=== PATIENT | female | born 1985 | race Two or more races ===

== ENCOUNTER 2023-10-30 21:02 | Inpatient (IN) | payer OTHER, SELFPAY ==
[2023-10-30 16:03] VITALS: BMI 25.7
[2023-10-30 16:04] VITALS: BP 115/81
[2023-10-30 16:20] LABS: % Basophils 0.1 % (0-2); % Eosinophils 2.1 % (0-6); % Immature Granulocytes 0.4 % (0-0.5); % Lymphocytes 11.4 % (20.5-51.1); Absolute Eosinophils 0.2 10^3/uL (0-0.7); Absolute Lymphocytes 0.9 10^3/uL (1.2-3.4); Absolute Monocytes 0.3 10^3/uL (0.1-0.6); Absolute Neutrophils 6.3 10^3/uL (1.4-6.5); Hematocrit 24.3 % (37.0-47.0); Mean Corp Hgb Conc. 27.2 g/dL (33.0-37.0); Mean Corpuscular Hgb 15.2 pg (27.0-31.0); Mean Corpuscular Volume 55.9 fL (81.0-99.0); Nucleated Red Blood Cells % 0 %; Platelet Count 296 10^3/uL (130-400); Red Blood Cell Count 4.35 10^6/uL (4.20-5.40); White Blood Cell Count 7.7 10^3/uL (4.8-10.8)
[2023-10-30 16:29] LABS: HCG, Serum Qualitative Screen Negative
[2023-10-30 16:33] LABS: ALT (SGPT) 13 U/L (0-35); AST (SGOT) 25 U/L (14-36); Albumin 4.7 g/dl (3.5-5.0); Alkaline Phosphatase 79 U/L (38-126); Blood Urea Nitrogen 14 mg/dl (7-17); Carbon Dioxide 22 mmol/L (22-30); Chloride 107 mmol/L (98-107); Glucose 97 mg/dl (70-99); Hemoglobin 6.6 g/dL (12.0-16.0); Potassium 4.5 mmol/L (3.5-5.1); Sodium 141 mmol/L (135-145); Total Protein 8.2 g/dl (6.3-8.2); eGFR > 60.00
[2023-10-30 16:48] LABS: Lipase 39 U/L (23-300)
[2023-10-30 16:56] LABS: Hypochromasia 1+; Macrocytosis 1+; Normal RBC Morphology No
[2023-10-30 16:57] LABS: Microcytosis 2+; Ovalocytes 1+
[2023-10-30 17:01] LABS: Stomatocytes Slight
--- NOTE | 2023-10-30 17:41 | ED.GENMED ---
History of Present Illness
General
Chief Complaint: Abdominal Pain
Source: patient
Time Seen by Provider: 10/30/23 17:23
History of Present Illness
History of Present Illness:
38-year-old female presents to the emergency room complaining of lower abdominal pain. Patient has been having the pain for the past several days. She has associated nausea and vomiting though the last time she vomited was about 2 days ago. She
noted some blood streaks in the vomit earlier in the week but again no vomiting for the past couple days. She did have loose stool this morning but no diarrhea since then. Pain is worse with movement. Patient denies any vaginal bleeding
currently. She does admit to having heavy menstrual periods though. She has no knowledge of ever being anemic in the past. She is never been told to take iron. Her abdominal pain is worse with movement and walking.
Phy Exam
Physical Exam
Physical Exam:
General: Awake, Alert, Oriented X3. No acute distress but does appear uncomfortable
Vitals: unremarkable
Head: Atraumatic
Eyes: Pupils equal, EOMI
Throat: Airway intact, no exudates
Neck: Trachea midline
Lungs: Clear and equal b/l
Heart: Regular rate, no murmurs
Abd: Soft, left lower quadrant tenderness palpation, No pulsatile mass
Neuro: Nonfocal
Skin: Warm, dry, no rash
Extremities: pulses equal b/l, no edema
Course
Orders/Labs/Results
Orders:
Orders
10/30/23 Breakfast
Regular
At Your Request: Full Participation
10/30/23 16:08
Test Result ONCE
10/30/23 16:12
Complete Blood Count/With Diff Urgent
Comprehensive Metabolic Panel Urgent
Ferritin Urgent
Comment: ADD ON
Folate Urgent
Comment: ADD ON
HCG, Serum Qualitative Screen Urgent
Iron Urgent
Comment: ADD ON
Lipase Urgent
Total Iron Binding Urgent
Comment: ADD ON
Vitamin B12 Urgent
Comment: ADD ON
10/30/23 17:38
0.9% Sodium Chloride 1000 ml [Nss] 1,000 ml IV BOLUS
HYDROmorphone [Dilaudid] 0.5 mg IV NOW STA
10/30/23 17:40
CT Abd/pelvis W Iv Cont Urgent
Comment:
Reason For Exam: llq abd pain
10/30/23 17:49
Type+Screen Urgent
10/30/23 20:05
Blood Bank Products [* Blood Bank Products] Urgent
Blood Bank Products: *Packed RBC Leuko(PRBC's)
Quantity: 1
Transfuse Today: Yes
Reason: Anemia
10/30/23 20:30
Add On- LAB Urgent
Tests Added?: iron, ferritin, tibc, folate, vit b12
10/30/23 20:47
Admit/Transfer Patient As Directed
Co-Sign Provider:
Level of Care: Inpatient admission
Assign to:: Medical/Surgical
Physician / Group: Dea
Diagnosis: Anemia
Reason for Hospitalization: blood transfusion
Expected length of stay greater than two midnights?: Yes
ELOS- Estimated Length of Stay in days: 3
I certify the patient meets the requirements for IP care: Yes
10/30/23 20:48
Code Status As Directed
Resuscitation Status: Full Code
10/30/23 22:07
Acetaminophen [Tylenol] 650 mg PO Q4HPRN PRN
10/30/23 22:07
Activity As Directed
Activity Level: Out of Bed-Early Mobility
With Assistance
I&O [Intake/ Output] As Directed
Frequency: q12h
Pneumatic Compression Sleeves As Directed
Type: Knee high
Vital Signs As Directed
Frequency: Per unit guidelines
Weight As Directed
Frequency: Daily
DX Deep Vein Thrombosis Video Routine
10/31/23 05:19
Basic Metabolic Panel IN AM
Complete Blood Count/No Diff IN AM
Abnormal Lab Results
10/30/23 10/30/23
16:12 17:49
Hgb 6.6 L* g/dL
(12.0-16.0)
Hct 24.3 L %
(37.0-47.0)
MCV 55.9 L fL
(81.0-99.0)
MCH 15.2 L pg
(27.0-31.0)
MCHC 27.2 L g/dL
(33.0-37.0)
RDW 20.0 H %
(11.5-14.5)
Absolute Lymphs (auto) 0.9 L 10^3/uL
(1.2-3.4)
Neutrophils % 82.0 H %
(42.2-75.2)
Lymphocytes % 11.4 L %
(20.5-51.1)
Creatinine 0.5 L mg/dL
(0.6-1.0)
Iron 29 L ug/dl
(37-170)
% Saturation 6 L %
(20-50)
Ferritin 3.3 L ng/ml
(6.24-137)
Antibody Screen Positive A
(Negative)
Crossmatch IS Only See Detail
MTS Gel Crossmatch See Detail
10/30/23 16:12
10/30/23 16:12
Vital Signs
Initial and Last Documented VS:
Initial Vital Signs
Temp Pulse Resp BP Pulse Ox
99.0 F 84 16 115/81 100
10/30/23 16:04 10/30/23 16:04 10/30/23 16:04 10/30/23 16:04 10/30/23 16:04
Last Documented Vital Signs
Temp Pulse Resp BP Pulse Ox
98.8 F 78 17 149/81 99
10/31/23 19:43 10/31/23 19:43 10/31/23 19:43 10/31/23 19:43 10/31/23 19:43
MDM/Problems Addressed
Differential Diagnosis Includes:
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
MDM/Problems Addressed:
Pt has some tenderness but not surgical abd. Labs show significant anemia. Pt is uninsured and we will be unable to arrange outpatient iron. Pt admitted for tx and hematology eval/iron infussion. Discussed with Dr. Talavera. Blood bank notes
antibodies on screen and identifying a unit of blood will take time.
*Radiology
Radiology exam reviewed: radiology read reviewed
*Pulse Oximetry
Patient hypoxic: no
*Critical Care Note
Total Time (30-74mins, 75-104mins- exclusive of procedures): Not Applicable
ED Attending Note
-
Portions of this chart may have been created with voice recognition software.� Occasional wrong word or��sound alike� substitutions may have occurred due to the inherent limitations of voice recognition software.
Discharge Plan
Departure
Patient Disposition: Admit
Date of Disposition: 10/30/23
Time of Disposition: 20:17
Admit to: Med/Surg
Presentation/result/management discussed w/ accepting MD/DO: Hospitalist
Condition: Fair
Discharge Problem:
Anemia
Interventions
Interventions:
*Risk Screen - Suicide Last Done: 10/30/23 17:50
*General Assessment Last Done: 10/30/23 17:50
*Neglect/Abuse Screening Last Done: 10/30/23 17:50
*ED COVID-19 Vaccine History Last Done: 10/30/23 22:18
*Nursing Disposition Last Done: 10/30/23 22:12
RE-Wybqxd-Cmnjbhvqmm Assessment Last Done: 10/30/23 17:50
Discharge Date and Time
Discharge Date/Time: 10/30/23 22:12
[2023-10-30] MEDS: DILAUDID 0.5 MG IV (17:54)
[2023-10-30] MEDS: NSS 1000 IV (17:57)
[2023-10-30 18:00] VITALS: BP 108/75
[2023-10-30 20:00] VITALS: BP 118/78
--- NOTE | 2023-10-30 20:51 | HPS.HSE ---
Family Physician
-
Family Physician: * NONE
Chief Complaint
-
Abdominal Pain
History of Present Illness
This is a 38 year old female without significant past medical history who presents to the emergency department with left lower quadrant abdominal pain, nausea, and vomiting for 10 days. She states her symptoms were intermittent. She reports she had
a fever the last two days and had two episodes of diarrhea. The patient reports her symptoms worsened today, prompting her to present to the emergency department. The patient states her pain was 10/10 but since receiving pain medication in the
emergency department, her pain is 2/10. Work-up in the ED revealed possible ruptured ovarian cyst was well as significant anemia with Hgb 6.6. Patient reports her periods are regular and that she uses 2-3 pads/day for a period lasting about a week.
The patient denies blood in her vomit or diarrhea. She denies previous blood transfusions or prior work-up for anemia. She denies chest pain, palpitations, dizziness, dyspnea, chills, and sweats.
Medical History
Past Medical History
Past Medical History: Reports None
Past Surgical History: Reports
Social History
Tobacco: Non-smoker
Family History
Family History: Not pertinent
Allergies / Home Medications
Allergies reflects when Allergies were last updated in [employer].
Home Medications with original date entered in [employer]
Allergy/Medication List:
Allergies
Allergy/AdvReac Type Severity Reaction Status Date / Time
No Known Allergies Allergy Verified 10/30/23 16:08
Home Medications
acetaminophen 500 mg tablet (Tylenol Extra Strength) 500 mg PO BIDPRN PRN mild pain 10/30/23
Review of Systems
-
A 12 point ROS was completed and negative except as noted: Yes
Respiratory: Denies Cough or Trouble Breathing
Cardiac: Denies Chest Pain or Palpitations
Abdomen/GI: Reports See HPI
: Reports See HPI
Physical Exam
Vital Signs
Vital Signs
Temp Pulse Resp BP Pulse Ox
99.0 F 79 19 108/75 100
10/30/23 16:04 10/30/23 18:00 10/30/23 18:00 10/30/23 18:00 10/30/23 18:00
Physical Exam
General: Comfortable, Conversant and Other (Appears Pale)
HEENT: Anicteric and Moist mucous membranes
Respiratory: Clear and Non Labored Respirations
Cardiac: S1/S2 and Regular Rhythm
GI: Soft and Tender (Mild tenderness left )
Musculoskeletal: No Clubbing, No Cyanosis and No Edema
Skin: Warm, Dry and Other (Pale)
Neuro: Awake, Alert, Oriented and Nonfocal/grossly intact
Psych: Calm
Laboratory Results
-
10/30/23 16:12
10/30/23 16:12
Laboratory Results
Total Bilirubin 1.0 mg/dl (0.2-1.3) 10/30/23 16:12
AST 25 U/L (14-36) 10/30/23 16:12
ALT 13 U/L (0-35) 10/30/23 16:12
Alkaline Phosphatase 79 U/L (38-126) 10/30/23 16:12
Lipase 39 U/L (23-300) 10/30/23 16:12
Data Reviewed
-
Lab Data: Labs Reviewed by me
Impression/Plan
-
Severe Microcytic Anemia, possibly related to long standing menstrual losses
-Transfuse 1 units PRBCs
-Check iron studies
-Check Pelvic US
-Consult Hematology
Abdominal Pain, possibly secondary to ruptured ovarian cyst
-Check Pelvic US
-Allow regular diet
DVT proph: SCDs
Code Status: Full Code
[2023-10-30 21:00] VITALS: BP 108/80
[2023-10-30 21:04] LABS: Iron 29 ug/dl (37-170)
[2023-10-30 21:14] LABS: Percent Saturation 6 % (20-50); Total Iron Binding Capacity 479 ug/dl (265-497)
--- NOTE | 2023-10-30 21:33 | W.PN.UPDATE ---
Update Note
Progress Note Update
This is an addendum to the H&P written by Mercy Wallace 10/30/2023. Patient seen and examined independently with PA.
38-year-old female no past medical history presenting with left lower quadrant abdominal pain for the past 10 days associate with daily vomiting in the morning. This was also associated low-grade fever up to 100.2 on 2 occasions, and slight amount
of blood once. No change in bowel movements. Patient reports history of heavy mentrual periods during her lfietime but only 2-3 pads for a week. Her periods have been regular.
Labs show severe microcytic anemia of 6.6. hCG negative. Patient never had blood work before. CT abdomen pelvis shows involuting cyst in right adnexa and small volume free fluid in the cul-de-sac and right adnexa.
Abdominal pain seems to be due to ovarian cyst rupture rather than GI process. Check pelvic ultrasound. Severe microcytic anemia likely secondary to chronic blood loss from menstruation. Check iron studies, B12, folate. Will require iron
transfusion. 1 unit of blood although patient with significant antibodies. Hematology consulted.
[2023-10-30 21:48] LABS: Ferritin 3.3 ng/ml (6.24-137)
[2023-10-30 22:12] VITALS: BMI 26.3
[2023-10-30 22:15] VITALS: BP 112/64
[2023-10-30 22:19] LABS: Vitamin B12 516 pg/ml (239-931)
[2023-10-31] VITALS (9 sets, daily range): BP systolic 105–149; BP diastolic 60–81; BMI 26.2
[2023-10-31] MEDS: ANESTHETIC LOZENGE 1 LOZENGE PO ×2 (00:03→04:52)
[2023-10-31] MEDS: TYLENOL 650 MG PO ×2 (00:11→04:52)
[2023-10-31 05:41] LABS: Hematocrit 24.1 % (37.0-47.0); Mean Corp Hgb Conc. 28.6 g/dL (33.0-37.0); Mean Corpuscular Hgb 16.8 pg (27.0-31.0); Mean Corpuscular Volume 58.6 fL (81.0-99.0); Platelet Count 251 10^3/uL (130-400); Red Blood Cell Count 4.11 10^6/uL (4.20-5.40); Red Cell Dist. Width 23.7 % (11.5-14.5); White Blood Cell Count 5.2 10^3/uL (4.8-10.8)
[2023-10-31 05:57] LABS: Blood Urea Nitrogen 8 mg/dl (7-17); Calcium 8.5 mg/dl (8.4-10.2); Carbon Dioxide 21 mmol/L (22-30); Chloride 107 mmol/L (98-107); Estimated Creatinine Clearance 116 ml/min; Glucose 89 mg/dl (70-99); Potassium 3.6 mmol/L (3.5-5.1); Sodium 137 mmol/L (135-145); eGFR > 60.00
--- NOTE | 2023-10-31 08:58 | PTCARENOTE ---
patient vomited small amount of clear emesis. danitza texted Dr. Baxter requesting order for Zofran PRN. He will place order for EKG prior to ordering to get baseline EKG, will continue to monitor.
--- NOTE | 2023-10-31 09:16 | CON.ONC ---
Impression
Impression
Iron deficiency anemia
Dysfunctional uterine bleeding
Ruptured ovarian cyst
Plan
Plan
Patient was transfused 1 unit.
Hemoglobin improved from 6.6-7.0.
Proceed with IV iron while inpatient Ferrlecit 125 mg daily x 3 days.
INTERACTIVE PRODUCER evaluation for ovarian cyst rupture as well as dysfunctional uterine bleeding.
Eventual GI consultation for endoscopic evaluation but this is not something that needs to be done acutely in the hospital.
If discharged, suggest transitioning from IV to oral iron iron sulfate OTC 325 mg every other day; IV iron can be continued as long as she is hospitalized.
Patient History
History of Present Illness
[facility]
[address] [place] [address]
[phone]
CC: Abdominal Pain
HEME CONSULT for severe microcytic anemia
HPI: 38 year old female without significant past medical history and without baseline lab testing who presents to the emergency department with left lower quadrant abdominal pain, nausea, and vomiting for 10 days. She states her symptoms were
intermittent. She reports she had a fever the last two days and had two episodes of diarrhea. The patient reports her symptoms worsened today, prompting her to present to the emergency department. The patient states her pain was 10/10 but since
receiving pain medication in the emergency department, her pain is 2/10. Work-up in the ED revealed possible ruptured ovarian cyst was well as significant anemia with Hgb 6.6. Subsequent iron studies confirmed severe iron deficiency. Patient was
transfused 1 unit reconsulted for consideration of IV iron. She describes her periods as heavy using 2-3 pads per day x 1 week. She denies chest pain, palpitations, dizziness, shortness of breath, ice pica, restless legs, or hematochezia.
Past-Medical/Surgical History
PMH: None
PSH:
Social History
Tobacco: Non-smoker
Family History
Family History: Not pertinent
Allergies / Home Medications
Patient Medication
�Medication �Instructions �Recorded �Confirmed �Last Taken �Type
acetaminophen 500 mg tablet 500 mg PO BIDPRN PRN mild pain 10/30/23 10/30/23 10/30/23 History
(Tylenol Extra Strength)
Active Medications
Generic Name Dose Route Start Last Admin
Trade Name Freq PRN Reason Stop Dose Admin
Acetaminophen 650 mg 10/30/23 22:07 10/31/23 04:52
Acetaminophen 325 Mg Tablet PO 11/27/23 22:06 650 mg
Q4HPRN PRN Administration
mild pain/ fever>100.5F
Benzocaine/Menthol 1 lozenge 10/30/23 23:52 10/31/23 04:52
Benzocaine/Menthol Lozenge PO 11/27/23 23:51 1 lozenge
Q4HPRN PRN Administration
sore throat
Ferric Sodium Gluconate 110 mls @ 110 mls/hr 10/31/23 14:00
Complex 125 mg/ Sodium IV 11/02/23 14:59
Chloride DAILY@1400 BAM
Sodium Chloride 0 flush 10/30/23 22:00
Sodium Chloride 0.9% (Flush) Syringe IV 11/27/23 21:59
PER PROTOCOL BAM
Physical Exam
-
General: Well Developed, Well Nourished and No Apparent Distress
HEENT: Negative Jaundice
Cardiology: S1 and S2
Pulmonary: Clear
GI: Soft
Extremities: No C/C/E
Labs
Lab Results
WBC 5.2 10^3/uL (4.8-10.8) 10/31/23 05:19
RBC 4.11 10^6/uL (4.20-5.40) L 10/31/23 05:19
Hgb 7.0 g/dL (12.0-16.0) L 10/31/23 05:19
Hct 24.1 % (37.0-47.0) L 10/31/23 05:19
MCV 58.6 fL (81.0-99.0) L 10/31/23 05:19
MCH 16.8 pg (27.0-31.0) L 10/31/23 05:19
MCHC 28.6 g/dL (33.0-37.0) L 10/31/23 05:19
RDW 23.7 % (11.5-14.5) H 10/31/23 05:19
Plt Count 251 10^3/uL (130-400) 10/31/23 05:19
MPV Not Reportable 10/31/23 05:19
Abs Immat Gran (auto) 0.0 10^3/uL (0-0.05) 10/30/23 16:12
Absolute Neuts (auto) 6.3 10^3/uL (1.4-6.5) 10/30/23 16:12
Absolute Lymphs (auto) 0.9 10^3/uL (1.2-3.4) L 10/30/23 16:12
Absolute Monos (auto) 0.3 10^3/uL (0.1-0.6) 10/30/23 16:12
Absolute Eos (auto) 0.2 10^3/uL (0-0.7) 10/30/23 16:12
Absolute Basos (auto) 0.0 10^3/uL (0-0.2) 10/30/23 16:12
Immature Gran % 0.4 % (0-0.5) 10/30/23 16:12
Neutrophils % 82.0 % (42.2-75.2) H 10/30/23 16:12
Lymphocytes % 11.4 % (20.5-51.1) L 10/30/23 16:12
Monocytes % 4.0 % (1.7-9.3) 10/30/23 16:12
Eosinophils % 2.1 % (0-6) 10/30/23 16:12
Basophils % 0.1 % (0-2) 10/30/23 16:12
Creatinine 0.5 mg/dL (0.6-1.0) L 10/31/23 05:19
Laboratory Tests
10/30/23
16:12
Iron 29 L
TIBC 479
% Saturation 6 L
Ferritin 3.3 L
Vital Signs
Vital Signs
Temp Pulse Resp BP Pulse Ox
99.2 F 72 16 108/70 100
10/31/23 07:00 10/31/23 07:00 10/31/23 07:00 10/31/23 07:00 10/31/23 07:00
[2023-10-31] MEDS: ZOFRAN 4 MG IV (11:13)
[2023-10-31] MEDS: FLUSH (NSS) 2 FLUSH IV ×2 (11:15→13:35)
--- NOTE | 2023-10-31 11:25 | CON.MD ---
Consultation - Medical
-
H and P dictated
Imp left abdominal pain, R involuting ovarian cyst, microcytic anemia
Plan
await pelvic us
continue with w/up abdominal sxs
[2023-10-31] MEDS: FERRLECIT 110 MG IV (13:34)
--- NOTE | 2023-10-31 14:53 | CM ---
Alert awake oriented patient who lives with her mom Tennille in [facility]. She is visiting friends.She lives in an apartment with 12 steps to enter to [address].She is independent in all activities of daily living.Her friend Don in room.Pt has no
insurance. LM with KARTIK Tinoco. Friend will drive her to their local home at [place].Pt here for anemia.
No adaptive devices
Never had VN/SNF
[facility]
PCP None
PLAN Home no needs
--- NOTE | 2023-10-31 15:15 | PTCARENOTE ---
patient tolerating sips of jasmina debby, will continue to monitor.
--- NOTE | 2023-10-31 17:03 | W.PN.HOSP.TC ---
Today's Communication/Plan
-
IV iron
Appreciate Metallurgy Laboratory Technician and Hem/onc
Await pelvic ultrasound
Assessment / Plan
Assessment / Plan
Physical Exam
General: Not in acute distress
HEENT: Moist mucous membranes
Respiratory: CTAB
Cardiac: S1/S2 and Regular Rhythm
GI: Soft and Tender (Mild tenderness left )
Musculoskeletal: No Cyanosis and No Edema
Skin: Warm, Dry
Neuro: Awake, Alert, Oriented and Nonfocal/grossly intact
Psych: Calm

Assessment/Plan
38-year-old female no past medical history presented with left lower quadrant abdominal pain for the past 10 days associate with daily vomiting. This was also associated with low-grade fever up to 100.2 F on 2 occasions, and slight amount of blood
once. No change in bowel movements. Patient reports history of heavy menstrual periods during her lifetime but only 2-3 pads for a week. Her periods have been regular. Labs showed severe microcytic anemia of 6.6. hCG negative. Patient never
had blood work before. CT abdomen pelvis shows involuting cyst in right adnexa and small volume free fluid in the cul-de-sac and right adnexa.
Severe Microcytic Anemia, possibly related to long standing menstrual losses
Iron Deficiency Anemia
-Transfused 1 units PRBCs
-Iron studies noted
-AwaitPelvic US
-Gynecology consulted, recommendations appreciated
-Okay to start a clear liquid diet
-Consulted Hematology, recommendations appreciated
-IV iron x3 days
Abdominal Pain, possibly secondary to ruptured ovarian cyst
-Check Pelvic US
-Allow clear diet for now
DVT proph: SCDs
Code Status: Full Code
Anticipated Discharge: 24 - 48 hours
Subjective/Interval History
-
Date of Service: October 31, 2023
Patient was seen and examined. She reported feeling fatigued and nurse reported she had some nausea, otherwise she reported overall feeling better than when she came in.
Objective Data
-
Labs:
Laboratory Results
10/31/23 10/31/23
05:19 19:15
WBC 5.2 Pending
Hgb 7.0 L Pending
Hct 24.1 L Pending
Plt Count 251 Pending
Sodium 137
Potassium 3.6
Chloride 107
Carbon Dioxide 21 L
BUN 8
Creatinine 0.5 L
Glucose 89
Calcium 8.5
Vital Signs:
Vital Signs
Temp Pulse Resp BP Pulse Ox
98.4 F 69 16 112/69 99
10/31/23 15:00 10/31/23 15:00 10/31/23 15:00 10/31/23 15:00 10/31/23 15:00
I&O
10/30/23 10/31/23 11/01/23
06:59 06:59 06:59
Intake Total 250 / 250
Balance 250 / 250
[2023-10-31 19:18] LABS: Hematocrit 24.8 % (37.0-47.0); Mean Corp Hgb Conc. 28.2 g/dL (33.0-37.0); Mean Corpuscular Hgb 16.5 pg (27.0-31.0); Mean Corpuscular Volume 58.5 fL (81.0-99.0); Platelet Count 252 10^3/uL (130-400); Red Blood Cell Count 4.24 10^6/uL (4.20-5.40); Red Cell Dist. Width 23.6 % (11.5-14.5); White Blood Cell Count 4.7 10^3/uL (4.8-10.8)
[2023-11-01] MEDS: ANESTHETIC LOZENGE 1 LOZENGE PO (03:00)
[2023-11-01 03:12] VITALS: BP 116/66
[2023-11-01 06:00] VITALS: BMI 25.5
[2023-11-01 07:17] VITALS: BP 129/64
[2023-11-01 08:24] LABS: % Basophils 0.2 % (0-2); % Eosinophils 3.8 % (0-6); % Immature Granulocytes 0.2 % (0-0.5); % Lymphocytes 24.3 % (20.5-51.1); % Monocytes 7.8 % (1.7-9.3); % Neutrophils 63.7 % (42.2-75.2); Absolute Eosinophils 0.2 10^3/uL (0-0.7); Absolute Lymphocytes 1.2 10^3/uL (1.2-3.4); Absolute Monocytes 0.4 10^3/uL (0.1-0.6); Absolute Neutrophils 3.2 10^3/uL (1.4-6.5); Hematocrit 25.9 % (37.0-47.0); Hemoglobin 7.4 g/dL (12.0-16.0); Mean Corp Hgb Conc. 28.6 g/dL (33.0-37.0); Mean Corpuscular Hgb 16.7 pg (27.0-31.0); Mean Corpuscular Volume 58.3 fL (81.0-99.0); Nucleated Red Blood Cells % 0 %; Platelet Count 270 10^3/uL (130-400); Red Blood Cell Count 4.44 10^6/uL (4.20-5.40)
[2023-11-01 08:35] LABS: ALT (SGPT) 10 U/L (0-35); AST (SGOT) 21 U/L (14-36); Albumin 4.2 g/dl (3.5-5.0); Alkaline Phosphatase 77 U/L (38-126); Blood Urea Nitrogen 9 mg/dl (7-17); Calcium 9.1 mg/dl (8.4-10.2); Carbon Dioxide 25 mmol/L (22-30); Chloride 105 mmol/L (98-107); Estimated Creatinine Clearance 116 ml/min; Glucose 82 mg/dl (70-99); Magnesium 2.2 mg/dl (1.6-2.3); Potassium 3.9 mmol/L (3.5-5.1); Sodium 140 mmol/L (135-145); Total Bilirubin 1.2 mg/dl (0.2-1.3); Total Protein 7.5 g/dl (6.3-8.2); eGFR > 60.00
--- NOTE | 2023-11-01 09:04 | W.PN.HOSP.TC ---
Today's Communication/Plan
-
Discharge today
Assessment / Plan
Assessment / Plan
Physical Exam
General: Not in acute distress
HEENT: Moist mucous membranes
Respiratory: CTAB
Cardiac: S1/S2 and Regular Rhythm
GI: Soft and Nontender. Positive bowel sounds.
Musculoskeletal: No Cyanosis and No Edema
Skin: Warm, Dry
Neuro: Awake, Alert, Oriented and Nonfocal/grossly intact
Psych: Calm

Assessment/Plan
38-year-old female no past medical history presented with left lower quadrant abdominal pain for the past 10 days associate with daily vomiting. This was also associated with low-grade fever up to 100.2 F on 2 occasions, and slight amount of blood
once. No change in bowel movements. Patient reports history of heavy menstrual periods during her lifetime but only 2-3 pads for a week. Her periods have been regular. Labs showed severe microcytic anemia of 6.6. hCG negative. Patient never
had blood work before. CT abdomen pelvis shows involuting cyst in right adnexa and small volume free fluid in the cul-de-sac and right adnexa.
Severe Microcytic Anemia, possibly related to long standing menstrual losses
Iron Deficiency Anemia
-Not actively bleeding at this time
-Transfused 1 units PRBCs
-Iron studies noted
-AwaitPelvic US outpatient if needed
-Gynecology consulted, recommendations appreciated
-Okay to advance diet as tolerated
-Consulted Hematology, recommendations appreciated
-IV iron while inpatient
-Oral iron 325 Q48H on discharge
Abdominal Pain, possibly secondary to ruptured ovarian cyst
-Check Pelvic US outpatient if needed
-Advance diet as tolerated
-I spoke today with on-call face man Dr. Betina Mart: Dr. Mart mentioned that if patient is not actively bleeding and ct scan did not show obvious uterine abnormality then she does not expect to find major concerns on her ultrasound that
would foreign exchange clerk immediately, and that patient likely just needs to be started on a control to manage her periods which Dr. Mart can discuss with patient outpatient
DVT proph: SCDs
Code Status: Full Code
More than 30 minutes spent in discharge including
Final examination of the patient
Summarizing hospital stay
Instructions for continuing care to all relevant caregivers
Preparation of discharge records, prescriptions, and referral forms
Total time spent (in minutes): 37
Anticipated Discharge: Today
Subjective/Interval History
-
Date of Service: November 01, 2023
Patient was seen and examined. She reported feeling much better, denied any bleeding from her urethra or vagina or rectum, and insisted that she wants to go home today. She reported that her fatigue is better as well.
Objective Data
-
Labs:
Laboratory Results
11/01/23
08:02
WBC 5.0
Hgb 7.4 L
Hct 25.9 L
Plt Count 270
Sodium 140
Potassium 3.9
Chloride 105
Carbon Dioxide 25
BUN 9
Creatinine 0.6
Glucose 82
Calcium 9.1
Total Bilirubin 1.2
AST 21
ALT 10
Alkaline Phosphatase 77
Vital Signs:
Vital Signs
Temp Pulse Resp BP Pulse Ox
99.2 F 68 16 129/64 100
11/01/23 07:17 11/01/23 07:17 11/01/23 07:17 11/01/23 07:17 11/01/23 07:17
I&O
10/31/23 11/01/23 11/02/23
06:59 06:59 06:59
Intake Total 250 / 250 730 / 730
Balance 250 / 250 730 / 730
--- NOTE | 2023-11-01 10:25 | W.PN.OBG.DWH ---
Today's Communication / Plan
-
f/u with her CNC MECHANIC within 1-2 weeks and have Pelvic US as an outpatient. Also I advised that she d/w her CNC MECHANIC starting on a control to help decrease the amount of bleeding with her period, as it is felt her anemia is related to menstrual blood
loss.
Assessment/Plan
-
38yo HD#3 with abdominal pain, microcytic anemia
-afvss
-Hgb stable s/p 1U PRBCs
-patient has received IV Fe and per Heme recommend continuing with oral fe at home. I also advised Fe rich foods
-radiology has not been able to get patient in for Pelvic US and patient does not want to continue to wait inpatient. At this time with her pain resolved and hgb stable, I have no concern for torsion, or actively bleeding hemorrhagic cyst or any
other etiology that would require immediate intervention. Thus I advised she f/u with her CNC MECHANIC within 1-2 weeks and have Pelvic US as an outpatient. Also I advised that she d/w her CNC MECHANIC starting on a control to help decrease the amount of
bleeding with her period, as it is felt her anemia is related to menstrual blood loss. patient in agreement with this
Subjective Data
-
feels well, sitting up in bed eating breakfast. Says she is no longer feeling pain. denies VB. wants to go home. says she lives in [place]
Objective Data
-
Laboratory Results
11/01/23 08:02
11/01/23 08:02
Vital Signs
Temp Pulse Resp BP Pulse Ox
99.2 F 68 16 129/64 100
11/01/23 07:17 11/01/23 07:17 11/01/23 07:17 11/01/23 07:17 11/01/23 07:17
Gen: nad aaox3
abd: soft, nt, nd
Pelvic deferred
[2023-11-01 11:21] VITALS: BP 112/68
--- NOTE | 2023-11-01 13:14 | W.DS.TRANS ---
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
-
Discharge Instructions:
Discharge Diagnosis/Procedures Severe Microcytic Anemia, possibly related to
long standing menstrual losses
Iron Deficiency Anemia
Abdominal Pain, possibly secondary to ruptured
ovarian cyst
On CT imaging: involuting cyst in the right
adnexa and small volume free fluid in the cul-de
-sac and right adnexa
Thickened echogenic endometrium on pelvic
ultrasound
Diet As tolerated
Activity As tolerated
Blood Work Check CBC, CMP with your outpatient provider in
2 to 3 days
Instructions:
Stand-Alone Forms:
Changes to Home Medications: Yes
Discharge Medications:
DC Medications w/original date entered in [facility]
acetaminophen 500 mg tablet (Tylenol Extra Strength) 500 mg PO BIDPRN PRN mild pain 10/30/23
ferrous sulfate 325 mg (65 mg iron) tablet 325 mg PO Q48H #14 tabs 11/01/23
Home Medication Changes
Ferrous Sulfate is a new medication.
Pending Results: No
Total time spent discharging patient (in min): 37
[2023-11-01] MEDS: FERRLECIT 110 MG IV (13:54)
--- NOTE | 2023-11-01 14:13 | CM ---
Plan: discharge to home today; no needs
[2023-11-01 15:33] VITALS: BP 108/67
== END 2023-11-01 15:51 | disposition home or self-care (01) | DRG 761 ==
LOC: 3 WEST ACU 21:02
PROVIDERS: Emergency Medicine; Physician Assistant Medical; ADMITTING PHYSICIAN Hospitalist; ATTENDING PHYSICIAN Hospitalist; CONSULT PHYSICIAN Obstetrics & Gynecology; EMERGENCY PHYSICIAN Emergency Medicine; OTHER PHYSICIAN Internal Medicine Hematology & Oncology
PROC: 30233N1 Transfusion of Nonautologous Red Blood Cells into Peripheral Vein, Percutaneous Approach (ICD-10-PCS; 2023-10-31)
DX: N92.4 Excessive bleeding in the premenopausal period (principal); D50.0 Iron deficiency anemia secondary to blood loss (chronic); N83.201 Unspecified ovarian cyst, right side
CPT/HCPCS: 74177; 76830; 76856; 80048; 80053; 82607; 82728; 82746; 83540; 83550; 83690; 83735; 84703; 85025; 85027; 86850; 86870; 86900; 86901; 86902; 86905; 86920; 86922; 93005; 96361; 96374; 99285; J2916; P9016; Q9967